=== PATIENT | male | born 2000 | race Two or more races ===

== ENCOUNTER 2021-06-12 11:43 | Emergency (ER) | payer MEDICAID ==
[~2021-06-12] VITALS: Ht 175.3 cm; Wt 61.4 kg
[2021-06-12 14:28] VITALS: BP 119/79
== END 2021-06-12 14:31 | disposition home or self-care (01) ==
LOC: EMS 11:43
DX: S76.912A Strain of unspecified muscles, fascia and tendons at thigh level, left thigh, initial encounter (principal); X58.XXXA Exposure to other specified factors, initial encounter; Y93.89 Activity, other specified; Y92.89 Other specified places as the place of occurrence of the external cause; Y99.8 Other external cause status
CPT/HCPCS: 99281; Z7502